=== PATIENT | male | born 1975 | race Caucasian/White ===

== ENCOUNTER 2018-10-13 13:10 | Emergency (ER) | payer MEDICAID ==
[~2018-10-13] VITALS: Ht 175.3 cm; Wt 101.6 kg
[2018-10-13 13:16] VITALS: Ht 175.3 cm; Wt 101.6 kg
[2018-10-13 15:54] VITALS: BP 145/80
== END 2018-10-13 15:54 | disposition home or self-care (01) ==
LOC: ED 13:10
DX: M25.511 Pain in right shoulder (principal); M25.512 Pain in left shoulder
CPT/HCPCS: J1885